=== PATIENT | female | born 1990 | race Caucasian/White ===

== ENCOUNTER 2024-04-19 11:27 | Emergency (ER) | payer OTHER, SELFPAY ==
[2024-04-19 11:44] VITALS: BP 109/68; PULSE 98; TEMP 36.9; O2SAT 100; BMI 18.2
== END 2024-04-19 12:13 | disposition left against medical advice (07) ==
PROVIDERS: Emergency Provider Emergency Medicine; PCP Pediatrics Pediatric Infectious Diseases
DX: Z53.21 Procedure and treatment not carried out due to patient leaving prior to being seen by health care provider (principal)